=== PATIENT | female | born 1955 | race Caucasian/White ===

== ENCOUNTER → 2017-06-16 | Outpatient (CLI) | payer BC ==
[~2017-06-16] MED LIST: ASPIRIN PO; BLACK COHASH; COZAAR PO; FISH OIL 1,0001 CAP PO; GLUCOSAMINE OTC; MULTIVITAMIN W/1 TAB PO; PREMARIN; PRILOSEC PO; ZETIA PO; ZOCOR PO; ZOLOFT PO
--- NOTE | ~2017-06-16 | US37 ---
[facility] A Service of [facility] & [facility] RADIOLOGY TEXT RESULTS PATIENT: ELKE MANCERA LOCATION: [facility] : 51 UNIT #: [id number] AGE: [address]: Irina Lindsey APRN SEX: F ORDER DR: [id number] [facility] [address] [place], [place] [address] [id number] O MR#: [id number] Acc #: [id number] NAME: ELKE MANCERA : 1955 SEX: F STUDY DATE/TIME: 06/16/2017 13:38 UNIT: [facility] ROOM: STUDY DESCRIPTION: US Carotid W/Doppler Bilateral Attending Physician: Irina Lindsey A.P.R.N. Referring Physician: Irina Lindsey A.P.R.N. Ordering Physician: Irina Lindsey A.P.R.N. Primary Care Physician: Vance Crawford M.D. MEDICAL IMAGING REPORT This report is preliminary unless electronic signature is present EXAM Carotid Doppler bilateral, 06/16/2017 HISTORY Dizziness and headaches for 2 years, hypertension, hyperlipidemia, TIA, evaluate for carotid stenosis. FINDINGS Harry-scale carotid artery images were obtained, as well as Doppler waveform spectral analysis and color flow Doppler imaging. The examination was interpreted according to NASCET criteria. There is no hemodynamically significant stenosis in either carotid artery. Peak systolic velocity in the right and left internal carotid arteries is 76 cm/sec and 62 cm/sec, respectively. Antegrade blood flow is seen in both vertebral arteries. There is mild calcified plaque on the right side and moderate calcified plaque is seen in the left carotid bulb. IMPRESSION No hemodynamically significant stenosis in either carotid artery. Dictated by... Kole Randle M.D. THIS IS AN ELECTRONICALLY VERIFIED REPORT Kole Randle M.D. at 06/17/2017 10:19 AM VIVEK/reuben TD: 06/16/2017 21:23 JOB #: [id number] MEDICAL IMAGING REPORT Page 1 of 1 COPY
== END | disposition home or self-care (01) ==
LOC: CECH 06-06 14:15
DX: R42 Dizziness and giddiness (principal); R29.898 Other symptoms and signs involving the musculoskeletal system; I34.0 Nonrheumatic mitral (valve) insufficiency; I36.1 Nonrheumatic tricuspid (valve) insufficiency; I51.89 Other ill-defined heart diseases
CPT/HCPCS: 93306; 93880